=== PATIENT | male | born 1980 | race Caucasian/White ===

== ENCOUNTER 2016-07-09 10:53 | Emergency (ER) | payer OTHER ==
[~2016-07-09] VITALS: Ht 175.3 cm; Wt 69.3 kg
[~2016-07-09 10:53] MED LIST: CITA20TA4 PO; IBUP-103 PO; WLLSR150 PO
[2016-07-09 10:56] VITALS: TEMP 36.7; Ht 175.3 cm; Wt 69.3 kg
[2016-07-09] MEDS ORDERED: KETOROLAC TROMETHAMINE 30 MG/ML VIAL IV STA (11:15)
[2016-07-09] MEDS ORDERED: ONDANSETRON 4MG OD TAB PO ONE (11:15)
[2016-07-09] MEDS ORDERED: ONDANSETRON INJ 2 MG/ML 2 ML VIAL IV STA (11:15)
[2016-07-09] MEDS ORDERED: SODIUM CHLORIDE 0.9% 1000ML 2,000 ML IV STA (11:15)
[2016-07-09] MEDS ORDERED: MECLIZINE HCL 25 MG TAB PO STA (11:17)
[2016-07-09 11:36] LABS: BASO % 0.7 %; BASO ABS # 0.05 K/uL (0-0.2); COMPLETE YES; HEMATOCRIT 40.6 % (42-52); IG% 0.3 %; LYMPH % 15.6 %; LYMPH ABS # 1.04 K/uL (1.2-3.4); MEAN CELL VOLUME 84.4 fL (80-100); MEAN CORPUSCULAR HEMOGLOBIN 30.8 pg (25-34); MEAN CORPUSCULAR HGB CONC 36.5 g/dl (32-36); MEAN PLATELET VOLUME 9.3 fL (7.4-10.4); MONO % 11.7 %; NEUT % 68.7 %; PLATELET COUNT 158 K/uL (130-400); RED BLOOD COUNT 4.81 M/uL (4.7-6.1); WHITE BLOOD COUNT 6.68 K/uL (4.8-10.8)
[2016-07-09 11:47] LABS: PARTIAL THROMBOPLASTIN RATIO 1.1; PROTHROMBIN TIME (PATIENT) 11.1 SECONDS (9.0-12.0)
[2016-07-09 11:56] VITALS: O2SAT 100
[2016-07-09 12:02] LABS: ALKALINE PHOSPHATASE 96 U/L (45-117); ALT/SGPT 26 U/L (12-78); AST/SGOT 15 U/L (15-37); BLOOD UREA NITROGEN 5 mg/dl (7-18); BUN/CREATININE RATIO 5.4 (10-20); CALCIUM 8.9 mg/dl (8.5-10.1); CARBON DIOXIDE 27 mmol/L (21-32); CHLORIDE 101 mmol/L (98-107); CREATININE 0.98 mg/dl (0.60-1.40); GLUCOSE 96 mg/dl (70-99); MAGNESIUM 1.9 mg/dl (1.8-2.4); POTASSIUM 3.5 mmol/L (3.5-5.1); SODIUM 137 mmol/L (136-145)
[2016-07-09] MEDS ORDERED: OPTIRAY 320 IV PRN (12:15)
--- NOTE | 2016-07-09 12:18 | DIAGNOSTIC IMAGING REPORT ---
CT HEAD WITHOUT CONTRAST (CT) CLINICAL HISTORY: Weakness, dizziness, numbness and tingling in the face and arm. Difficulty with balance. COMPARISON STUDY: 09/23/2015 TECHNIQUE: Axial CT of the brain is performed from the vertex to the skull base. IV contrast was not administered for this examination. CT DOSE: 823.94 mGycm FINDINGS: No intra or extra-axial mass lesions are visualized. There is no CT evidence of acute cortical infarction. There is no evidence of midline shift. There is no acute hemorrhage. No calvarial fractures are visualized. There is no evidence of pathologic ventricular dilatation. There is complete opacification and mild expansion of the right maxillary sinus. Multiple teeth when air cells are opacified. There is a sphenoid sinus retention cyst. There is partial opacification of the right frontal sinus. There are postcraniotomy changes involving the right parietal bone. IMPRESSION: 1. No acute intracranial findings 2. Post craniotomy changes 3. Pansinus disease Electronically signed by: Desmond Black M.D. 07/09/2016 12:17 PM
--- NOTE | 2016-07-09 12:38 | DIAGNOSTIC IMAGING REPORT ---
CT ANGIOGRAPHY OF THE CHEST, PULMONARY EMBOLUS PROTOCOL CLINICAL HISTORY: Shortness of breath, chest pain and elevated d-dimer. COMPARISON STUDY: Chest radiograph April 24, 2015 TECHNIQUE: Following IV administration of 102 mL of Optiray-320, helical axial images of the chest were obtained utilizing the pulmonary embolus protocol. Maximal intensity projections and sagittal and coronal reformats were viewed on an independent 3D workstation. IV contrast was administered without complication. CT DOSE: 435.48 mGycm FINDINGS: No pulmonary emboli are identified. There is no evidence of thoracic aortic dissection. The size of the heart is normal. There is no pericardial effusion. There are a few mildly enlarged right hilar lymph nodes that measure up to 1.4 cm in short axis diameter. There are prominent left hilar nodes. There are no enlarged mediastinal or axillary nodes. No pneumothorax or pleural effusions present. There are subtle groundglass opacities with centrilobular nodules within upper lobe predominance. No confluent consolidation is present. Central airways are patent. Bony thorax is unremarkable. Borderline splenomegaly similar to CT of January 27, 2009. IMPRESSION: 1. No pulmonary emboli identified. 2. Subtle subtle groundglass opacity with centrilobular nodules throughout the lungs with an upper lobe predominance. This finding could reflect a mild infectious process such as bronchiolitis. Alternatively, the findings could reflect hypersensitivity pneumonitis or respiratory bronchiolitis of interstitial lung disease. 3. Mild bilateral hilar lymphadenopathy, right greater than left. This may be reactive. A follow up chest CT in 6 months is recommended. Electronically signed by: Abraham Dennis M.D. 07/09/2016 12:36 PM
--- NOTE | 2016-07-09 13:00 | DIAGNOSTIC IMAGING REPORT ---
CHEST 2 VIEWS ROUTINE CLINICAL HISTORY: WEAKNESS DIZZINESS COMPARISON STUDY: 07/30/2014 FINDINGS: The cardiac and mediastinal contours are normal. There is no evidence of focal pulmonary consolidation. There is no evidence of failure. No pleural effusions are visualized.[ IMPRESSION: No active disease in the chest. Electronically signed by: Desmond Black M.D. 07/09/2016 12:59 PM
[2016-07-09 13:32] LABS: URINE APPEARANCE CLEAR (CLEAR); URINE BILIRUBIN NEG (NEG); URINE COLOR YELLOW; URINE NITRITE NEG (NEG); URINE PH 8.5 (4.5-7.5); URINE SPECIFIC GRAVITY > 1.045 (1.000-1.030); UROBILINOGEN NEG (NEG)
[2016-07-09 13:33] LABS: MANUAL MICROSCOPIC REQUIRED? NO; REVIEW REQ? NO
[2016-07-09 14:04] VITALS: BP 126/64; PULSE 81; O2SAT 98
--- NOTE | 2016-07-09 17:22 | EMERGENCY ROOM VISIT NOTE ---
History Report prepared by Home: Jennifer Neal Under the Supervision of: Dr. Kelvin Nance D.O. First contact with patient: 10:58 Chief Complaint: DIZZY Stated Complaint: DIZZY, NUMB/TINGLE, FACE ARM, OFF BALANCE Nursing Triage Summary: Triage Note: Pt reports "she can talk for me." pt girlfriend reports pt has been dizzy and lightheaded and falling since Thursday also face hands and arms are tingling. History of Present Illness The patient is a 36 year old male who presents to the Emergency Room with complaints of persistent dizziness that started 3 days ago. Originally, he thought his symptoms were a result of being hungover but they persisted. He describes the dizziness as lightheadedness like he is going to experience syncope. He has not experienced syncope. He states that the dizziness feels like "things are wobbling" but not spinning. The dizziness is worse with changes in position. The patient's girlfriend states that the patient has been falling a lot recently also. He is also experiencing chills, headache, rhinorrhea, sinus congestion, sore throat, productive cough with green sputum, and generalized weakness. He has not measured his temperature so he is unsure of if he has a fever. The patient is also experiencing facial numbness and bilateral arm numbness. Nothing makes the numbness better, but it is worse with walking. His last bowel movement was a couple days ago. The patient is also experiencing chest pain that is worse with deep breaths. He has not been eating or drinking much. The chest pain started 3 days ago. He denies any history of blood clots along with recent trips. He is experiencing shortness of breath with the chest pain. The patient denies any recent sick contacts. Source of History: patient, spouse/significant other (girlfriend) Onset: 3 days ago Position: head Quality: other (lightheadedness like he is going to experience syncope) Timing: other (persistent) Modifying Factors (Worsening): other (changes in position) Associated Symptoms: + SOB, + chest pain (worse with deep breaths), + chills , + cough (productive with green sputum), + headache, + numbness (face, bilateral arms), + sorethroat, + weakness (generalized) Note: rhinorrhea, sinus congestion Review of Systems See HPI for pertinent positives & negatives. A total of 10 systems reviewed and were otherwise negative. Past Medical & Surgical Social History Problems: (1) Smoker Family History Diabetes mellitus FH: HTN (hypertension) FH: cancer Social History Smoking Status: Current Every Day Smoker Alcohol Use: occasionally Marital Status: in relationship Housing Status: lives with family Occupation Status: unemployed Current/Historical Medications Scheduled Buspirone Hcl (Buspirone Hcl), 20 MG PO TID Divalproex Sodium (Depakote), 1 TAB PO BID Escitalopram Oxalate (Lexapro), Unknown Dose PO DAILY Quetiapine Fumarate (Quetiapine Fumarate), 600 MG PO HS Scheduled PRN Ibuprofen Tab (Advil), 800 MG PO Q8 PRN for Pain or Fever Allergies Coded Allergies: No Known Allergies (Verified , 07/09/16) Physical Exam Vital Signs Date Time Temp Pulse Resp B/P Pulse Ox O2 Delivery O2 Flow Rate FiO2 07/09/16 14:04 81 14 126/64 98 07/09/16 12:44 84 14 111/68 97 89 127/86 97 128/80 07/09/16 12:41 85 15 111/68 95 Room Air 07/09/16 11:56 100 Room Air 07/09/16 11:39 99 Room Air 07/09/16 11:35 78 07/09/16 10:56 36.7 95 20 112/78 100 Room Air Physical Exam GENERAL: alert, sitting up in bed, disheveled appearing, well nourished, no distress, non-toxic HEAD: Tender over maxillary and frontal sinuses. EYE EXAM: normal conjunctiva, PERRL and EOM's intact OROPHARYNX: no exudate, no erythema, lips, buccal mucosa, and tongue normal and mucous membranes are moist NECK: supple, no nuchal rigidity, no adenopathy, non-tender, negative Brudzinski LUNGS: Clear to auscultation. Normal chest wall mechanics HEART: no murmurs, S1 normal and S2 normal ABDOMEN: abdomen soft, non-tender, normo-active bowel sounds, no masses, no rebound or guarding. BACK: Back is symmetrical on inspection and there is no deformity, no midline tenderness, no CVA tenderness. SKIN: no rashes and no bruising UPPER EXTREMITIES: upper extremities are grossly normal. LOWER EXTREMITIES: No pitting edema. NEURO EXAM: Normal sensorium, cranial nerves II-XII intact, normal speech, no weakness of arms, no weakness of legs. No drift. Finger to nose intact. Gross sensation intact. Rapid alternating movements of upper extremities are intact bilaterally. GCS: 15. Medical Decision & Procedures ER Provider Diagnostic Interpretation: Xray results per the radiologist and my interpretation. Other results have been interpreted by the radiologist and reviewed by me. CHEST 2 VIEWS ROUTINE CLINICAL HISTORY: WEAKNESS DIZZINESS COMPARISON STUDY: 07/30/2014 FINDINGS: The cardiac and mediastinal contours are normal. There is no evidence of focal pulmonary consolidation. There is no evidence of failure. No pleural effusions are visualized.[ IMPRESSION: No active disease in the chest. Electronically signed by: Desmond Black M.D. 07/09/2016 12:[address] HEAD WITHOUT CONTRAST (CT) CLINICAL HISTORY: Weakness, dizziness, numbness and tingling in the face and arm. Difficulty with balance. COMPARISON STUDY: 09/23/2015 TECHNIQUE: Axial CT of the brain is performed from the vertex to the skull base. IV contrast was not administered for this examination. CT DOSE: 823.94 mGycm FINDINGS: No intra or extra-axial mass lesions are visualized. There is no CT evidence of acute cortical infarction. There is no evidence of midline shift. There is no acute hemorrhage. No calvarial fractures are visualized. There is no evidence of pathologic ventricular dilatation. There is complete opacification and mild expansion of the right maxillary sinus. Multiple teeth when air cells are opacified. There is a sphenoid sinus retention cyst. There is partial opacification of the right frontal sinus. There are postcraniotomy changes involving the right parietal bone. IMPRESSION: 1. No acute intracranial findings 2. Post craniotomy changes 3. Pansinus disease Electronically signed by: Desmond Black M.D. 07/09/2016 12:[address] ANGIOGRAPHY OF THE CHEST, PULMONARY EMBOLUS PROTOCOL CLINICAL HISTORY: Shortness of breath, chest pain and elevated d-dimer. COMPARISON STUDY: Chest radiograph April 24, 2015 TECHNIQUE: Following IV administration of 102 mL of Optiray-320, helical axial images of the chest were obtained utilizing the pulmonary embolus protocol. Maximal intensity projections and sagittal and coronal reformats were viewed on an independent 3D workstation. IV contrast was administered without complication. CT DOSE: 435.48 mGycm FINDINGS: No pulmonary emboli are identified. There is no evidence of thoracic aortic dissection. The size of the heart is normal. There is no pericardial effusion. There are a few mildly enlarged right hilar lymph nodes that measure up to 1.4 cm in short axis diameter. There are prominent left hilar nodes. There are no enlarged mediastinal or axillary nodes. No pneumothorax or pleural effusions present. There are subtle groundglass opacities with centrilobular nodules within upper lobe predominance. No confluent consolidation is present. Central airways are patent. Bony thorax is unremarkable. Borderline splenomegaly similar to CT of January 27, 2009. IMPRESSION: 1. No pulmonary emboli identified. 2. Subtle subtle groundglass opacity with centrilobular nodules throughout the lungs with an upper lobe predominance. This finding could reflect a mild infectious process such as bronchiolitis. Alternatively, the findings could reflect hypersensitivity pneumonitis or respiratory bronchiolitis of interstitial lung disease. 3. Mild bilateral hilar lymphadenopathy, right greater than left. This may be reactive. A follow up chest CT in 6 months is recommended. Electronically signed by: Abraham Dennis M.D. 07/09/2016 12:36 PM Laboratory Results 07/09/16 11:25 Red Blood Count 4.81, Mean Corpuscular Volume 84.4, Mean Corpuscular Hemoglobin 30.8, Mean Corpuscular Hemoglobin Concent 36.5, Mean Platelet Volume 9.3, Neutrophils (%) (Auto) 68.7, Lymphocytes (%) (Auto) 15.6, Monocytes (%) (Auto) 11.7, Eosinophils (%) (Auto) 3.0, Basophils (%) (Auto) 0.7, Neutrophils # (Auto ) 4.59, Lymphocytes # (Auto) 1.04, Monocytes # (Auto) 0.78, Eosinophils # (Auto ) 0.20, Basophils # (Auto) 0.05 07/09/16 11:25 Test 07/09/16 11:25 07/09/16 11:30 07/09/16 11:34 07/09/16 13:00 White Blood Count 6.68 K/uL (4.8-10.8) Red Blood Count 4.81 M/uL (4.7-6.1) Hemoglobin 14.8 g/dL (14.0-18.0) Hematocrit 40.6 % (42-52) Mean Corpuscular Volume 84.4 fL (80-100) Mean Corpuscular Hemoglobin 30.8 pg (25-34) Mean Corpuscular Hemoglobin Concent 36.5 g/dl (32-36) Platelet Count 158 K/uL (130-400) Mean Platelet Volume 9.3 fL (7.4-10.4) Neutrophils (%) (Auto) 68.7 % Lymphocytes (%) (Auto) 15.6 % Monocytes (%) (Auto) 11.7 % Eosinophils (%) (Auto) 3.0 % Basophils (%) (Auto) 0.7 % Neutrophils # (Auto) 4.59 K/uL (1.4-6.5) Lymphocytes # (Auto) 1.04 K/uL (1.2-3.4) Monocytes # (Auto) 0.78 K/uL (0.11-0.59) Eosinophils # (Auto) 0.20 K/uL (0-0.5) Basophils # (Auto) 0.05 K/uL (0-0.2) RDW Standard Deviation 37.9 fL (36.4-46.3) RDW Coefficient of Variation 12.3 % (11.5-14.5) Immature Granulocyte % (Auto) 0.3 % Immature Granulocyte # (Auto) 0.02 K/uL (0.00-0.02) Prothrombin Time 11.1 SECONDS (9.0-12.0) Prothromb Time International Ratio 1.0 (0.9-1.1) Activated Partial Thromboplast Time 28.2 SECONDS (21.0-31.0) Partial Thromboplastin Ratio 1.1 D-Dimer 670 ug/L FEU (0-500) Anion Gap 9.0 mmol/L (3-11) Est Creatinine Clear Calc Drug Dose 104.1 ml/min Estimated GFR () 116.1 Estimated GFR (Non- 100.2 BUN/Creatinine Ratio 5.4 (10-20) Calcium Level 8.9 mg/dl (8.5-10.1) Magnesium Level 1.9 mg/dl (1.8-2.4) Total Bilirubin 0.6 mg/dl (0.2-1) Direct Bilirubin 0.2 mg/dl (0-0.2) Aspartate Amino Transf (AST/SGOT) 15 U/L (15-37) Alanine Aminotransferase (ALT/SGPT) 26 U/L (12-78) Alkaline Phosphatase 96 U/L (45-117) Troponin I < 0.015 ng/ml (0-0.045) Total Protein 7.5 gm/dl (6.4-8.2) Albumin 4.0 gm/dl (3.4-5.0) Lipase 127 U/L (73-393) Influenza Type A Antigen POS for Influ A (NEG) Influenza Type B Antigen Neg for Influ B (NEG) Bedside Glucose 93 mg/dl (70-99) Urine Color YELLOW Urine Appearance CLEAR (CLEAR) Urine pH 8.5 (4.5-7.5) Urine Specific [place] > 1.045 (1.000-1.030) Urine Protein NEG (NEG) Urine Glucose (UA) NEG (NEG) Urine Ketones 1+ (NEG) Urine Occult Blood NEG (NEG) Urine Nitrite NEG (NEG) Urine Bilirubin NEG (NEG) Urine Urobilinogen NEG (NEG) Urine Leukocyte Esterase NEG (NEG) Laboratory results per my review. Medications Administered Medications (Trade) Dose Ordered Sig/J Carlos Route Start Time Stop Time Status Last Admin Dose Admin Ondansetron HCl 4 mg 4 mg ONE ONCE PO 07/09/16 11:15 07/09/16 11:18 DC 07/09/16 11:50 4 MG Sodium Chloride (Nss 1000ml) 2,000 ml @ 999 mls/hr Q2H1M STAT IV 07/09/16 11:15 07/09/16 13:15 DC 07/09/16 11:49 999 MLS/HR Ondansetron HCl (Zofran Inj) 4 mg NOW STAT IV 07/09/16 11:15 07/09/16 11:18 DC 07/09/16 11:50 4 MG Ketorolac Tromethamine (Toradol Inj) 30 mg NOW STAT IV 07/09/16 11:15 07/09/16 11:18 DC 07/09/16 11:49 30 MG Meclizine HCl (Antivert Tab) 25 mg NOW STAT PO 07/09/16 11:17 07/09/16 11:18 DC 07/09/16 11:50 25 MG ECG Indication: chest pain Rate (beats per minute): 83 Rhythm: sinus rhythm Findings: other (normal axis, poor baseline in inferior leads) ED Course ED COURSE: Vital signs were reviewed and showed normal. The patients medical record was reviewed The above diagnostic studies were performed and reviewed. ED treatments and interventions as stated above. 1104: The patient was evaluated in room C5. A complete history and physical examination was performed. 1115: Ordered Toradol 30 mg IV, Zofran 4 mg IV, Sodium Chloride 2000 ml @ 999 mls/hr IV, Zofran Odt 4 mg PO 1117: Ordered Antivert Tab 25 mg PO 1229: I reassessed and updated the patient. 1400: Upon reevaluation, the patient is doing better. I discussed my findings with the patient and he understands and agrees with the treatment plan. Based on the patients age, coexisting illnesses, exam and lab findings the decision to treat as an outpatient was made. The patient remained stable while under my care. The patient appeared well at the time of discharge. Medical Decision Differential Diagnosis includes but is not limited to dehydration, stroke, anemia, hypoglycemia, hyponatremia, hypernatremia, urinary tract infection, pneumonia, bronchitis, sepsis, gastroenteritis, additional abdominal pathology, metabolic abnormalities and infections. Patient is a 36-year-old male who presents the ER with upper esterase symptoms and diffuse weakness. On exam labs show no significant leukocytosis or anemia. BMP along with LFTs, bilirubin, troponin and lipase are all negative. UA shows a small amount ketones. No infection. D-dimer was positive. He did have pleuritic chest pain. EKG was unremarkable. CT PE was negative. Influenza A eventually was positive. Patient was given a bolus normal saline felt slightly better. He is completely neurologically intact. He was discharged follow-up with his primary care doctor. He was not given any Tamiflu as these symptoms have been present for over 48 hours. He was able to ambulate out of the ER following discharge. CT head was also unremarkable. Symptoms were more orthostatic in nature. Discussed with Pt concerning signs and symptoms to watch out for. Pt was instructed to follow up with their PCP and discussed with the patient their option to return to the ED at anytime for persistent or worsening symptoms. The appropriate anticipatory guidance and out- patient management, including indications for return to the emergency department , were explained at length to the patient and understood. Impression Primary Impression: Influenza A Additional Impressions: Dizziness, Weakness Scribe Attestation The scribe's documentation has been prepared under my direction and personally reviewed by me in its entirety. I confirm that the note above accurately reflects all work, treatment, procedures, and medical decision making performed by me. Departure Information Dispostion Home / Self-Care Referrals Fabienne Sahni M.D. (MEDICAL) (PCP) Forms HOME CARE DOCUMENTATION FORM, IMPORTANT VISIT INFORMATION Patient Instructions A Signature Page, My [facility]
[2016-07-29] MEDS ORDERED: ESCI1TAB10 PO (12:10)
[2016-07-29] MEDS ORDERED: DIVA500T59 PO (12:10)
[2016-07-29] MEDS ORDERED: BUSP-8 PO (15:22)
[2016-07-29] MEDS ORDERED: SRQ300 PO (17:19)
== END 2016-07-09 14:05 | disposition home or self-care (01) ==
LOC: C.EDB 10:54 → C.EDC 14:05
DX: J09.X2 Influenza due to identified novel influenza A virus with other respiratory manifestations (principal); R59.0 Localized enlarged lymph nodes; R79.1 Abnormal coagulation profile; R91.8 Other nonspecific abnormal finding of lung field; F17.200 Nicotine dependence, unspecified, uncomplicated

== ENCOUNTER 2016-07-29 17:52 | Emergency (ER) | payer OTHER ==
[~2016-07-29] VITALS: Ht 175.3 cm; Wt 72.4 kg
[~2016-07-29 17:52] MED LIST changes: +BUSP-8 PO; -CITA20TA4 PO; +DIVA500T59 PO; +ESCI1TAB10 PO; +SRQ300 PO; -WLLSR150 PO
[2016-07-29 17:56] VITALS: TEMP 36.8; Ht 175.3 cm; Wt 72.4 kg
[2016-07-29] MEDS ORDERED: HYDROCODONE/ACETAMOPHEN 5/325MG TAB PO STA (18:23)
[2016-07-29] MEDS ORDERED: AMOXICILLIN 250 MG CAP PO ONE (18:30)
--- NOTE | 2016-07-29 18:47 | EMERGENCY ROOM VISIT NOTE ---
ED Visit Note First contact with patient: 18:19 CHIEF COMPLAINT: Left upper tooth pain HISTORY OF PRESENT ILLNESS: This 36-year-old male patient has had a progressive left upper toothache for 3 days. The pain is now steady and severe and radiates to the face. Denies facial swelling or fever. The patient has been taking ibuprofen for pain without any relief. The patient called his dentist but they did not get back to him with an appointment time. REVIEW OF SYSTEMS: 6 system review was performed and was negative unless stated otherwise in history of present illness. PMH: The patient is healthy; head surgery SOCIAL HISTORY: Patient lives with his girlfriend. The patient admits to tobacco use but denies any alcohol use. PHYSICAL EXAM: Vital Signs: Were reviewed Reviewed Nurse's notes. GEN.: 36-year -old white male appears uncomfortable secondary to tooth pain. MENTAL Status: Alert and oriented 3. MOUTH: Poor dental hygiene. Multiple teeth with decay. Upper front 2 teeth are missing. The #10 and 11 tooth with diffuse decay and tenderness to percussion. Surrounding gingiva with erythema but no palpable abscess. FACE: No erythema or edema noted. NECK: Supple, no lymphadenopathy noted. LUNGS: Clear to auscultation without wheezes rales or rhonchi. CARDIAC : Regular rate and rhythm without murmur. EMERGENCY COURSE: The patient was evaluated. The patient was given amoxicillin 500 mg by mouth and [place] 5/325 mg 2 tablets by mouth. The patient was reevaluated was feeling slightly better. The patient was discharged home with his girlfriend driving. DIAGNOSIS: Dental caries and dentalgia DISCHARGE INSTRUCTIONS & TREATMENT: Take amoxicillin as prescribed. Ibuprofen 600 mg every 6 hours with food for pain. Take [place] as needed for more severe pain. Do not verbal taking the [place]. Appointment with your dentist as soon as possible for definitive care. Problem List Social History Problems: (1) Smoker Status: Chronic Current/Historical Medications Scheduled Buspirone Hcl (Buspirone Hcl), 20 MG PO TID Divalproex Sodium (Depakote), 1 TAB PO BID Escitalopram Oxalate (Lexapro), Unknown Dose PO DAILY Quetiapine Fumarate (Quetiapine Fumarate), 600 MG PO HS Scheduled PRN Ibuprofen Tab (Advil), 800 MG PO Q8 PRN for Pain or Fever Allergies Coded Allergies: No Known Allergies (Verified , 07/09/16) Vital Signs Date Time Temp Pulse Resp B/P Pulse Ox O2 Delivery O2 Flow Rate FiO2 07/29/16 17:56 36.8 94 18 115/77 95 Room Air Medications Administered Medications (Trade) Dose Ordered Sig/J Carlos Route Start Time Stop Time Status Last Admin Dose Admin Acetaminophen/ Hydrocodone Bitart ([place] 5/325 Tab) 2 tab NOW STAT PO 07/29/16 18:23 07/29/16 18:26 DC 07/29/16 18:35 2 TAB Amoxicillin (Amoxil Cap) 500 mg NOW ONCE PO 07/29/16 18:30 07/29/16 18:31 DC 07/29/16 18:35 500 MG Departure Information Referrals Fabienne Sahni M.D. (MEDICAL) (PCP) Patient Instructions [facility]
[2016-07-29] MEDS ORDERED: AMOX500C3 PO (18:49)
[2016-07-29] MEDS ORDERED: HYDR-5688 PO (18:49)
[2016-07-29 19:01] VITALS: BP 121/81; PULSE 97; O2SAT 98
== END 2016-07-29 19:02 | disposition home or self-care (01) ==
LOC: C.EDB 17:52 → C.EDD 19:02
DX: K02.9 Dental caries, unspecified (principal); K08.89 Other specified disorders of teeth and supporting structures; F17.200 Nicotine dependence, unspecified, uncomplicated; Z79.899 Other long term (current) drug therapy

== ENCOUNTER → 2016-10-07 | Outpatient (CLI) | payer OTHER ==
[~2016-10-07] MED LIST changes: +BSP/10 PO; +CEPH500C PO; +DIVA250T PO; +DPKSR/250 PO; +HYDR-5688 PO; +LXP10 PO; +PANT40TA PO
[2016-10-07 12:48] LABS: BASO % 0.2 %; BASO ABS # 0.02 K/uL (0-0.2); COMPLETE YES; EOS % 5.2 %; IG% 0.3 %; LYMPH % 27.6 %; MEAN CELL VOLUME 85.8 fL (80-100); MEAN CORPUSCULAR HEMOGLOBIN 30.9 pg (25-34); MEAN PLATELET VOLUME 10.4 fL (7.4-10.4); NEUT % 60.7 %; PLATELET COUNT 146 K/uL (130-400); RED BLOOD COUNT 4.66 M/uL (4.7-6.1)
[2016-10-07 13:17] LABS: ALT/SGPT 18 U/L (12-78); AST/SGOT 8 U/L (15-37); BLOOD UREA NITROGEN 8 mg/dl (7-18); BUN/CREATININE RATIO 8.1 (10-20); CARBON DIOXIDE 31 mmol/L (21-32); CHLORIDE 103 mmol/L (98-107); CREATININE 0.94 mg/dl (0.60-1.40); GLUCOSE 101 mg/dl (70-99); POTASSIUM 3.7 mmol/L (3.5-5.1); SODIUM 140 mmol/L (136-145)
[2016-10-07 13:19] LABS: ALKALINE PHOSPHATASE 70 U/L (45-117)
== END | disposition home or self-care (01) ==
LOC: C.LAB 11:42
PROVIDERS: ATTEND Psychiatry & Neurology Psychiatry
DX: F31.9 Bipolar disorder, unspecified (principal)

== ENCOUNTER 2017-04-01 09:44 | Emergency (ER) | payer OTHER ==
[~2017-04-01] VITALS: Ht 175.3 cm; Wt 70.5 kg
[~2017-04-01 09:44] MED LIST changes: -BSP/10 PO; -CEPH500C PO; -DIVA250T PO; -DPKSR/250 PO; -HYDR-5688 PO; -LXP10 PO; -PANT40TA PO
[2017-04-01 09:48] VITALS: TEMP 36.7; Ht 175.3 cm; Wt 70.5 kg
--- NOTE | 2017-04-01 10:06 | DIAGNOSTIC IMAGING REPORT ---
LEFT INDEX FINGER 3 VIEWS HISTORY: R/O fracture left index finger, stove fell on finger COMPARISON: None. FINDINGS: There is no fracture or dislocation. Mild soft tissue swelling. No radiopaque foreign bodies. IMPRESSION: No fractures. Electronically signed by: Sony Leigh M.D. 04/01/2017 10:05 AM Dictated Date/Time: 04/01/2017 10:03 AM
[2017-04-01] MEDS ORDERED: XYLOCAINE 1%/SOD BICARB 20 ML VIAL INFIL ONE (10:20)
[2017-04-01] MEDS ORDERED: DIVA250T PO (10:27)
[2017-04-01] MEDS ORDERED: LXP10 PO (10:27)
[2017-04-01] MEDS ORDERED: BSP/10 PO (10:27)
[2017-04-01] MEDS ORDERED: DPKSR/250 PO (10:27)
[2017-04-01] MEDS ORDERED: CEPH500C PO (10:41)
--- NOTE | 2017-04-01 10:45 | EMERGENCY ROOM VISIT NOTE ---
ED Visit Note First contact with patient: 10:10 CHIEF COMPLAINT: Finger laceration HISTORY OF PRESENT ILLNESS: This 37-year-old male patient presents to the emergency department ambulatory after cutting the left second finger when he was throwing a kitchen stove into a truck to take for scrap metal and something sharp cut him. It did not crush his finger. The bleeding has not stopped. Denies weakness or numbness of the finger. The patient states that he cannot extend the finger. The patient denies any pain. The patient denies any other injuries. The patient's tetanus shot is up to date. REVIEW OF SYSTEMS: A 6 system review of systems was completed with positives and pertinent negatives listed in the HPI. ALLERGIES: No known drug allergies MEDICATIONS: See nursing notes PMH: Mood disorder SOCIAL HISTORY: The patient lives locally PHYSICAL EXAM: Vital Signs: Reviewed Nurse's notes, vital signs stable. GENERAL : This 37-year-old male, in no acute distress, well developed, well nourished. SKIN: There is a 3 cm long laceration on the dorsal aspect of the left second finger. The edges gape apart with traction. There is no foreign material in the wound and it looks clean. There is moderate bleeding. No deep structures such as tendons, bones, or nerves are seen in the base of the wound. The patient is unable to extend the finger. Full range of motion of the wrist and other fingers. Capillary refill less than 2 seconds. Normal sensation to light and sharp touch. EMERGENCY DEPARTMENT COURSE: I examined the patient. Using sterile technique the wound was cleaned with Betadine. 4 ml of 1% buffered lidocaine was used to infiltrate the wound to anesthetize the patient. The area was sterilely draped. Once the patient was numb, the wound was copiously irrigated under pressure with sterile saline. There does appear to be a laceration to the extensor tendon. The laceration was repaired using simple interrupted 5-0 nylon sutures. The patient tolerated the procedure well. The bleeding stopped. The area was cleaned with sterile saline and dressed with bacitracin ointment and bandage. The patient was placed in a metal splint by the emergency department special systems technician He'll be placed on Keflex to help prevent infection An appointment was made for him with orthopedics tomorrow. He should keep this appointment. He should return with worsening symptoms. LEFT INDEX FINGER 3 VIEWS HISTORY: R/O fracture left index finger, stove fell on finger COMPARISON: None. FINDINGS: There is no fracture or dislocation. Mild soft tissue swelling. No radiopaque foreign bodies. IMPRESSION: No fractures. The patient was discharged home in good condition. Problem List Social History Problems: (1) Smoker Status: Chronic Current/Historical Medications Scheduled Buspirone HCl (Buspirone HCl), 2 TAB PO TID Cephalexin Monohydrate (Keflex), 500 MG PO TID Divalproex Sodium (Depakote Extended-Release), 1 TAB PO QAM Divalproex Sodium (Depakote Er), 2 TAB PO HS Escitalopram Oxalate (Escitalopram Oxalate), 1 TAB PO QAM Quetiapine Fumarate (Quetiapine Fumarate), 600 MG PO HS Scheduled PRN Ibuprofen Tab (Advil), 800 MG PO Q8 PRN for Pain or Fever Allergies Coded Allergies: No Known Allergies (Verified , 04/01/17) Vital Signs Date Time Temp Pulse Resp B/P (MAP) Pulse Ox O2 Delivery O2 Flow Rate FiO2 04/01/17 11:10 95 18 139/82 98 04/01/17 09:48 36.7 95 18 124/81 98 Room Air Departure Information Impression Primary Impression: Finger laceration involving tendon Dispostion Home / Self-Care Condition GOOD Prescriptions Cephalexin Monohydrate (Keflex) 500 Mg Cap 500 MG PO TID for 7 Days, #21 CAP Prov: Adelaida Ivan PA-C 04/01/17 Referrals Fabienne Sahni M.D. (MEDICAL) (PCP) Hernandez Castro D.O. Patient Instructions ED Laceration Tendon, My [facility] Additional Instructions Keflex as prescribed until finished Keep wound clean and dry. Do not allow any crusting or dried blood to accumulate on sutures. If this occurs, use a 1:1 solution of hydrogen peroxide/ water on a Q-tip to clean the wound. Use an antibiotic ointment for 3-4 days, then let wound dry. Suture removal in 10-12 days. Return sooner for any signs of infection (increasing redness, swelling, drainage). Ice and elevate for swelling and pain. Ibuprofen 600 mg every 6 hrs for pain. Keep covered when in sun until sutures removed then SPF 50 or higher for one year. Vitamin E oil if desired two weeks after suture removal for reduction of scar. Wear the splint until seen by orthopedics You have an appointment with Efrain Cantor PA-C tomorrow at 12:10 at [facility] Return with worsening symptoms Problem Qualifiers Primary Impression: Finger laceration involving tendon Encounter type: initial encounter Qualified Codes: S61.219A - Laceration without foreign body of unspecified finger without damage to nail, initial encounter; S66.929A - Laceration of unspecified muscle, fascia and tendon at wrist and hand level, unspecified hand, initial encounter
[2017-04-01 11:10] VITALS: BP 139/82; PULSE 95; O2SAT 98
== END 2017-04-01 11:10 | disposition home or self-care (01) ==
LOC: C.EDB 09:46 → C.EDD 11:10
DX: S61.211A Laceration without foreign body of left index finger without damage to nail, initial encounter (principal); S66.321A Laceration of extensor muscle, fascia and tendon of left index finger at wrist and hand level, initial encounter; W45.8XXA Other foreign body or object entering through skin, initial encounter; F17.200 Nicotine dependence, unspecified, uncomplicated; Z79.899 Other long term (current) drug therapy

== ENCOUNTER 2017-06-09 20:41 | Emergency (ER) | payer OTHER ==
[~2017-06-09] VITALS: Ht 175.3 cm; Wt 77.5 kg
[~2017-06-09 20:41] MED LIST changes: +BSP/10 PO; -BUSP-8 PO; +DIVA250T PO; -DIVA500T59 PO; +DPKSR/250 PO; -ESCI1TAB10 PO; +LXP10 PO
[2017-06-09 20:58] VITALS: TEMP 36.5; Ht 175.3 cm; Wt 77.5 kg
[2017-06-09] MEDS ORDERED: ONDANSETRON INJ 2 MG/ML 2 ML VIAL IV STA (21:28)
[2017-06-09] MEDS ORDERED: MoRPHine SULFATE 4 MG/ML 1 ML CARP\\VIAL IV STA (21:28)
[2017-06-09] MEDS ORDERED: PANTOprazole INJ 40 MG in SYRINGE 0 ML IV ONE (21:30)
[2017-06-09] MEDS ORDERED: PANT40TA PO (21:33)
[2017-06-09 22:01] LABS: BASO % 0.4 %; BASO ABS # 0.03 K/uL (0-0.2); COMPLETE YES; EOS % 3.5 %; HEMATOCRIT 37.4 % (42-52); IG% 0.7 %; LYMPH ABS # 3.31 K/uL (1.2-3.4); MEAN CELL VOLUME 88.2 fL (80-100); MEAN CORPUSCULAR HEMOGLOBIN 31.1 pg (25-34); MEAN CORPUSCULAR HGB CONC 35.3 g/dl (32-36); MEAN PLATELET VOLUME 9.6 fL (7.4-10.4); NEUT % 44.4 %; PLATELET COUNT 137 K/uL (130-400); RED BLOOD COUNT 4.24 M/uL (4.7-6.1); WHITE BLOOD COUNT 7.53 K/uL (4.8-10.8)
[2017-06-09 22:21] LABS: ALT/SGPT 16 U/L (12-78); BLOOD UREA NITROGEN 7 mg/dl (7-18); BUN/CREATININE RATIO 7.6 (10-20); CARBON DIOXIDE 29 mmol/L (21-32); CHLORIDE 101 mmol/L (98-107); CREATININE 0.92 mg/dl (0.60-1.40); GLUCOSE 108 mg/dl (70-99); POTASSIUM 3.3 mmol/L (3.5-5.1); SODIUM 137 mmol/L (136-145)
[2017-06-09 22:24] LABS: ALKALINE PHOSPHATASE 81 U/L (45-117); AST/SGOT 10 U/L (15-37)
--- NOTE | 2017-06-09 22:35 | EMERGENCY ROOM VISIT NOTE ---
History Report prepared by Fidelibpat: Jonathan Melton Under the Supervision of: Dr. Lauro Mancilla D.O. First contact with patient: 21:24 Chief Complaint: ABDOMINAL PAIN Stated Complaint: PAIN LEFT SIDE UNDER RIBS Nursing Triage Summary: pt c/o intermittent upper abdominal pain. pt states 3 weeks ago he went to PCP and put on antacid for stomach, unknown med. pt states for last 4-5 hours pt has had severe mid upper abdominal pain that won't go away. states he hasn't eaten all day. pain worse when he takes a deep breath. pain radiates upwards into L ear, sometimes into R ear. denies N/V/D/C and belching History of Present Illness The patient is a 37 year old male who presents to the Emergency Room with complaints of intermittent epigastric abdominal pain beginning a month ago. His pain radiates up and into his ears. His pain has been constant for the past four hours. The patient has been seen for his symptoms, and has been evaluated for GERD. He rates his current pain as an 8.5/10 in severity. He denies any fevers, bloody stool, or urinary symptoms. The patient is a former smoker. Source of History: patient Onset: A month ago Position: abdomen (epigastric) Symptom Intensity: 8.5/10 Timing: intermittent Associated Symptoms: No fevers, No hematochezia, No urinary symptoms Review of Systems See HPI for pertinent positives and negatives. A total of ten systems were reviewed and were otherwise negative. Past Medical & Surgical Medical Problems: (1) Back strain (2) Closed head injury (3) Dizziness (4) Finger laceration involving tendon (5) Gastritis (6) Headache (7) Influenza (8) Influenza A (9) Laceration of hand, right, complicated (10) No Known Active Medical Problems (11) Pain due to dental caries (12) Pain due to dental caries (13) Pneumonia (14) Rib contusion (15) Right corneal abrasion (16) Scalp laceration (17) Sinusitis (18) Weak (19) Weakness Social History Problems: (1) Smoker Family History Diabetes mellitus FH: HTN (hypertension) FH: cancer Social History Smoking Status: Current Every Day Smoker Alcohol Use: occasionally Marital Status: in relationship Housing Status: lives with family Occupation Status: unemployed Current/Historical Medications Scheduled Buspirone HCl (Buspirone HCl), 20 MG PO BID Divalproex Sodium (Depakote Extended-Release), 250 MG PO QAM Divalproex Sodium (Depakote Er), 500 MG PO HS Escitalopram Oxalate (Escitalopram Oxalate), 10 MG PO QAM Pantoprazole (Protonix), 40 MG PO DAILY Quetiapine Fumarate (Quetiapine Fumarate), 600 MG PO HS Scheduled PRN Ibuprofen Tab (Advil), 800 MG PO Q8 PRN for Pain or Fever Allergies Coded Allergies: No Known Allergies (Verified , 04/01/17) Physical Exam Vital Signs Date Time Temp Pulse Resp B/P (MAP) Pulse Ox O2 Delivery O2 Flow Rate FiO2 06/09/17 22:33 74 18 116/76 98 Room Air 06/09/17 20:58 36.5 76 18 116/49 98 Room Air Physical Exam GENERAL: Awake, alert, well-appearing, in no distress HENT: Normocephalic, atraumatic. Oropharynx unremarkable. EYES: Normal conjunctiva. Sclera non-icteric. NECK: Supple. No nuchal rigidity. FROM. No JVD. RESPIRATORY: Clear to auscultation. CARDIAC: Regular rate, normal rhythm. Extremities warm and well perfused. Pulses equal. ABDOMEN: Soft, non-distended. Epigastric tenderness to palpation. No rebound or guarding. No masses. RECTAL: Deferred. MUSCULOSKELETAL: Chest examination reveals no tenderness. The back is symmetrical on inspection without obvious abnormality. There is no CVA tenderness to palpation. No joint edema. LOWER EXTREMITIES: Calves are equal size bilaterally and non-tender. No edema. No discoloration. NEURO: Normal sensorium. No sensory or motor deficits noted. SKIN: No rash or jaundice noted. Medical Decision & Procedures Laboratory Results 06/09/17 21:40 Red Blood Count 4.24, Mean Corpuscular Volume 88.2, Mean Corpuscular Hemoglobin 31.1, Mean Corpuscular Hemoglobin Concent 35.3, Mean Platelet Volume 9.6, Neutrophils (%) (Auto) 44.4, Lymphocytes (%) (Auto) 44.0, Monocytes (%) (Auto) 7.0, Eosinophils (%) (Auto) 3.5, Basophils (%) (Auto) 0.4, Neutrophils # (Auto) 3.35, Lymphocytes # (Auto) 3.31, Monocytes # (Auto) 0.53, Eosinophils # (Auto) 0.26, Basophils # (Auto) 0.03 06/09/17 21:40 Test 06/09/17 21:28 06/09/17 21:40 White Blood Count 7.53 K/uL (4.8-10.8) Red Blood Count 4.24 M/uL (4.7-6.1) Hemoglobin 13.2 g/dL (14.0-18.0) Hematocrit 37.4 % (42-52) Mean Corpuscular Volume 88.2 fL (80-100) Mean Corpuscular Hemoglobin 31.1 pg (25-34) Mean Corpuscular Hemoglobin Concent 35.3 g/dl (32-36) Platelet Count 137 K/uL (130-400) Mean Platelet Volume 9.6 fL (7.4-10.4) Neutrophils (%) (Auto) 44.4 % Lymphocytes (%) (Auto) 44.0 % Monocytes (%) (Auto) 7.0 % Eosinophils (%) (Auto) 3.5 % Basophils (%) (Auto) 0.4 % Neutrophils # (Auto) 3.35 K/uL (1.4-6.5) Lymphocytes # (Auto) 3.31 K/uL (1.2-3.4) Monocytes # (Auto) 0.53 K/uL (0.11-0.59) Eosinophils # (Auto) 0.26 K/uL (0-0.5) Basophils # (Auto) 0.03 K/uL (0-0.2) RDW Standard Deviation 40.6 fL (36.4-46.3) RDW Coefficient of Variation 12.7 % (11.5-14.5) Immature Granulocyte % (Auto) 0.7 % Immature Granulocyte # (Auto) 0.05 K/uL (0.00-0.02) Anion Gap 7.0 mmol/L (3-11) Est Creatinine Clear Calc Drug Dose 112.1 ml/min Estimated GFR () 124.5 Estimated GFR (Non- 107.4 BUN/Creatinine Ratio 7.6 (10-20) Calcium Level 9.0 mg/dl (8.5-10.1) Total Bilirubin 0.4 mg/dl (0.2-1) Direct Bilirubin < 0.1 mg/dl (0-0.2) Aspartate Amino Transf (AST/SGOT) 10 U/L (15-37) Alanine Aminotransferase (ALT/SGPT) 16 U/L (12-78) Alkaline Phosphatase 81 U/L (45-117) Total Protein 7.5 gm/dl (6.4-8.2) Albumin 3.5 gm/dl (3.4-5.0) Lipase 158 U/L (73-393) Laboratory results reviewed by me Medications Administered Medications (Trade) Dose Ordered Sig/J Carlos Route Start Time Stop Time Status Last Admin Dose Admin Ondansetron HCl (Zofran Inj) 4 mg NOW STAT IV 06/09/17 21:28 06/09/17 21:30 DC 06/09/17 21:47 4 MG Morphine Sulfate (MoRPHine SULFATE INJ) 4 mg NOW STAT IV 06/09/17 21:28 06/09/17 21:30 DC 06/09/17 21:47 4 MG Pantoprazole Sodium 40 mg/ Syringe 10 ml @ 5 mls/min NOW ONCE IV 06/09/17 21:30 06/09/17 21:31 DC 06/09/17 21:55 5 MLS/MIN ECG Indication: abdominal pain Rate (beats per minute): 74 Rhythm: sinus rhythm Findings: no acute ischemic change, other (Normal intervals. Normal axis. ) ED Course 2123: The patient was evaluated in room C10. A complete history and physical exam was performed. 2127: Ordered Morphine Sulfate 4 mg IV, Zofran Inj 4 mg IV. 2129: Ordered Pantoprazole Sodium 40 mg/Syringe 10 mL @ 5 mL/min IV. 2131: I reevaluated the patient. Discussed results and discharge instructions: he verbalized understanding and agreement. The patient is ready for discharge. Medical Decision Differential diagnoses include but are not limited to; gastritis, gastroenteritis, cholecystitis, pancreatitis, appendicitis and GERD. Patient evaluated for midepigastric abdominal pain. Patient was given Protonix morphine Zofran. Patient's labs were normal. I do not suspect pancreatitis or cholecystitis. I instructed the patient to take Pepcid daily follow-up primary care physician and a GI physician. Spoken patient and the patient's significant other at bedside Medication Reconcilliation Current Medication List: was personally reviewed by me Blood Pressure Screening Patient's blood pressure: Normal blood pressure Blood pressure disposition: Did not require urgent referral Impression Primary Impression: Gastritis Additional Impression: Epigastric abdominal pain Scribe Attestation The scribe's documentation has been prepared under my direction and personally reviewed by me in its entirety. I confirm that the note above accurately reflects all work, treatment, procedures, and medical decision making performed by me. Departure Information Dispostion Home / Self-Care Referrals Fabienne Sahni M.D. (MEDICAL) (PCP) Patient Instructions ED PUD Vs Gastritis, My [facility] Additional Instructions Follow-up primary care physician, take Pepcid daily, consider following up with a GI physician Problem Qualifiers Primary Impression: Gastritis
[2017-06-09 22:41] LABS: MANUAL MICROSCOPIC REQUIRED? NO; REVIEW REQ? NO; URINE APPEARANCE CLEAR (CLEAR); URINE BILIRUBIN NEG (NEG); URINE COLOR YELLOW; URINE NITRITE NEG (NEG); URINE SPECIFIC GRAVITY 1.007 (1.000-1.030); UROBILINOGEN NEG (NEG); ZZUR CULT IF INDIC CLEAN CATCH NO
[2017-06-09 22:47] VITALS: BP 116/76; PULSE 74; O2SAT 98
== END 2017-06-09 22:49 | disposition home or self-care (01) ==
LOC: C.EDB 20:41 → C.EDC 22:49
DX: K29.70 Gastritis, unspecified, without bleeding (principal); Z87.891 Personal history of nicotine dependence; Z83.3 Family history of diabetes mellitus; Z82.49 Family history of ischemic heart disease and other diseases of the circulatory system; Z80.9 Family history of malignant neoplasm, unspecified

== ENCOUNTER 2017-06-24 18:40 | Emergency (ER) | payer OTHER ==
[~2017-06-24] VITALS: Ht 175.3 cm; Wt 76.1 kg
[2017-06-24 18:43] VITALS: BP 133/79; PULSE 105; TEMP 36.7; O2SAT 96; Ht 175.3 cm; Wt 76.1 kg
[2017-06-24 19:32] LABS: HEMATOCRIT 38.2 % (42-52); MEAN CELL VOLUME 87.4 fL (80-100); MEAN CORPUSCULAR HEMOGLOBIN 31.8 pg (25-34); MEAN CORPUSCULAR HGB CONC 36.4 g/dl (32-36); MEAN PLATELET VOLUME 9.7 fL (7.4-10.4); PLATELET COUNT 173 K/uL (130-400); RED BLOOD COUNT 4.37 M/uL (4.7-6.1); WHITE BLOOD COUNT 6.97 K/uL (4.8-10.8)
--- NOTE | 2017-06-24 19:33 | EMERGENCY ROOM VISIT NOTE ---
ED Visit Note First contact with patient: 18:48 CHIEF COMPLAINT: knee pain HISTORY OF PRESENT ILLNESS: This 37 year old male patient presents to the emergency department, ambulatory, complaining of 3 week long history of left knee pain. He denies injury. Pain is only present on palpation and when sitting on his knees. 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 He states the symptoms have been progressively worsening, despite using knee pads while painting and on his knees. The patient states the only thing which seems to help is putting a pillow under his shins while kneeling down to take the pressure off of his knees. He denies any fatigue, open wound, recent illness, other joint pain or myalgias, confusion, dizziness, nausea, or vomiting. He has not had a fever. The patient denies any other injuries besides their knee. The patient does report swelling and redness, over the anterior aspect of the knee, but denies bruising. There is pain anteriorly. They rate the pain as sharp and 1/10 currently. The patient states they are able to walk on it. No numbness or tingling. No previous injuries to this knee. No ankle, foot or hip pain. The patient has been taking 800mg ibuprofen every 3 hours for the pain without significant relief. REVIEW OF SYSTEMS: A 6 system review of systems was completed with positives and pertinent negatives listed in the HPI. ALLERGIES: None MEDICATIONS: BuSpar, Depakote, Lexapro, Protonix, Quetiapine PMH: Bipolar, Paranoia, GERD SOCIAL HISTORY: The patient lives locally with family. He denies drug, alcohol use. He admits to smoking 1 to 1 1/2 packs cigarettes per day. PHYSICAL EXAM: Vital Signs: Reviewed Nurse's notes, vital signs stable. GENERAL : This is a 37 year old white male, no acute distress, but appears in pain, well-developed, well-nourished. MENTAL STATUS: Alert, oriented to person place and time, and cooperative. MUSCULOSKELETAL: The left knee is anteriorly swollen. The right knee is also mildly swollen, but to a much less degree. There is no ecchymosis. There is no joint effusion present. The patient is tender on palpation of the patella. There is no joint line tenderness. The patella does appropriately subluxate. Range of motion is full. Strength of the quads and hamstrings is 5/5. Chantal's is negative. Celeste's and Anterior Drawer tests are negative. There is no laxity or discomfort with varus and valgus stressing. The foot and toes are warm and well-perfused. Dorsalis pedis pulse 2+. Sensation to pain and light touch is intact. Capillary refill less than 2 seconds. RADIOLOGY: R KNEE 3 VIEWS CLINICAL HISTORY: 37 years-old Male presenting with right knee pain/swelling. TECHNIQUE: Frontal, crosstable lateral , and sunrise views of the right knee were obtained. COMPARISON: None. FINDINGS: An osseous excrescence arising from the medial tibial metaphysis is directed away from the joint and appears to have continuity with the medullary cavity most suggestive of an osteochondroma. No degenerative change at the knee joint. No acute fracture or subluxation. Patella is not subluxed. Trace knee joint effusion may be present. Mild subcutaneous edema may also be present in the prepatellar region. IMPRESSION: 1. No acute osseous injury. 2. Suspected tibial osteochondroma. 3. Trace knee joint effusion. Electronically signed by: Jesse Jones M.D. 06/24/2017 7:58 PM Dictated Date/Time: 06/24/2017 7:57 PM EMERGENCY DEPARTMENT COURSE: I examined the patient. X-rays of the right knee were reviewed by myself and read by radiology and reveal a suspected tibial osteochondroma and trace knee joint effusion. I did encourage the patient to follow up outpatient regarding the osteochondroma on his x-ray. Labs were ordered to evaluate for lyme, infection, and gout. These were negative. The patient's symptoms and history of his job as a painter apprentice are consistent with a bursitis. The patient will be started on scheduled Naprosyn for the next 2 weeks and he was encouraged to use compression perform elastic compression brace over the knee. I advised him against repetitive microtrauma with sitting on his knees and standing over and over again. The patient is to follow-up with his PCP in 2 weeks for recheck. I encouraged him to follow up with orthopedics if symptoms do not improve. I did educate the patient on proper dosages of ibuprofen, and advised against taking high dosages like 800mg every three hours due to the risk of GI bleeding and ulcers. The patient verbalizes understanding. The patient was discharged home in good condition. I attest that I have personally reviewed the patient's current medication list. Patient was found to have normal blood pressure on screening and does not require follow-up. DIFFERENTIAL DIAGNOSIS: Bursitis, Lyme disease, septic joint, gout, cellulitis, effusion, fracture, dislocation, malignancy, and others DIAGNOSIS: Prepatellar bursitis Problem List Medical Problems: (1) Back strain Status: Resolved (2) Closed head injury Status: Resolved (3) Dizziness Status: Resolved (4) Finger laceration involving tendon Status: Resolved (5) Gastritis Status: Resolved (6) Headache Status: Resolved (7) Influenza Status: Resolved (8) Influenza A Status: Resolved (9) Laceration of hand, right, complicated Status: Resolved (10) Pain due to dental caries Status: Resolved (11) Pain due to dental caries Status: Resolved (12) Pneumonia Status: Resolved (13) Rib contusion Status: Resolved (14) Right corneal abrasion Status: Resolved (15) Scalp laceration Status: Resolved (16) Sinusitis Status: Resolved (17) Weak Status: Resolved (18) Weakness Status: Resolved Social History Problems: (1) Smoker Status: Chronic Current/Historical Medications Scheduled Buspirone HCl (Buspirone HCl), 20 MG PO BID Divalproex Sodium (Depakote Extended-Release), 250 MG PO QAM Divalproex Sodium (Depakote Er), 500 MG PO HS Escitalopram Oxalate (Escitalopram Oxalate), 10 MG PO QAM Naproxen (Naprosyn), 500 MG PO BID Pantoprazole (Protonix), 40 MG PO DAILY Quetiapine Fumarate (Quetiapine Fumarate), 600 MG PO HS Scheduled PRN Ibuprofen Tab (Advil), 800 MG PO Q8 PRN for Pain or Fever Allergies Coded Allergies: No Known Allergies (Verified , 04/01/17) Vital Signs Date Time Temp Pulse Resp B/P (MAP) Pulse Ox O2 Delivery O2 Flow Rate FiO2 06/24/17 18:43 36.7 105 16 133/79 96 Room Air Laboratory Results 06/24/17 19:20 06/24/17 19:20 Test 06/24/17 19:20 Red Blood Count 4.37 M/uL (4.7-6.1) Mean Corpuscular Volume 87.4 fL (80-100) Mean Corpuscular Hemoglobin 31.8 pg (25-34) Mean Corpuscular Hemoglobin Concent 36.4 g/dl (32-36) RDW Standard Deviation 40.3 fL (36.4-46.3) RDW Coefficient of Variation 12.5 % (11.5-14.5) Mean Platelet Volume 9.7 fL (7.4-10.4) Anion Gap 4.0 mmol/L (3-11) Est Creatinine Clear Calc Drug Dose 93.8 ml/min Estimated GFR () 100.3 Estimated GFR (Non- 86.5 BUN/Creatinine Ratio 7.5 (10-20) Uric Acid 6.6 mg/dl (2.6-7.2) Calcium Level 8.7 mg/dl (8.5-10.1) Lyme Disease IgG Antibody NEG (NEG) Lyme Disease IgM Antibody NEG (NEG) Medications Administered Medications (Trade) Dose Ordered Sig/J Acrlos Route Start Time Stop Time Status Last Admin Dose Admin Naproxen (Naprosyn Tab) 500 mg NOW STAT PO 06/24/17 20:21 06/24/17 20:23 DC 06/24/17 20:29 500 MG Departure Information Impression Primary Impression: Prepatellar bursitis of right knee Additional Impression: Osteochondroma of bone Dispostion Home / Self-Care Condition GOOD Prescriptions Naproxen (Naprosyn) 500 Mg Tab 500 MG PO BID for 14 Days, #28 TAB Prov: Ruthie Carney, ANA 06/24/17 Referrals Fabienne Sahni M.D. (MEDICAL) (PCP) Patient Instructions ED Bursitis, My [facility] Additional Instructions You were seen in the emergency department today for right knee pain. Labs and imaging were insignificant for acute causes for your symptoms. Labs were negative for Lyme disease and gout. I do suspect a prepatellar bursitis. As discussed, this is treated with rest, compression, and antiinflammatories. Follow-up with your PCP regarding osteochondroma noted on X-ray. Take Naproxen 500mg twice daily x2 weeks. This is to be used in place of ibuprofen, Motrin, Advil, Aleve. Acetaminophen(Tylenol) may be used for fever or pain. Use 1000mg every six hours as needed. Avoid using more than 3000mg in a 24 hour period. He may take this medication while on Naproxen. As discussed, parts picker an elastic knee brace to provide compression over the knee. You should avoid repetitive kneeling or microtrauma to the knee. If you must perform these movements, use padding under the knees. Please follow-up in 2 weeks with your PCP for re-check. You have been provided with contact information for orthopedics. You may consult with them if necessary. Return to the ED for worsening pain, swelling, redness, fever, chills, nausea, vomiting, decreased mobility, or other concerning symptoms. Problem Qualifiers
[2017-06-24 19:48] LABS: BUN/CREATININE RATIO 7.5 (10-20); CALCIUM 8.7 mg/dl (8.5-10.1); CREATININE 1.1 mg/dl (0.60-1.40); POTASSIUM 3.7 mmol/L (3.5-5.1); URIC ACID 6.6 mg/dl (2.6-7.2)
--- NOTE | 2017-06-24 19:59 | DIAGNOSTIC IMAGING REPORT ---
R KNEE 3 VIEWS CLINICAL HISTORY: 37 years-old Male presenting with right knee pain/swelling. TECHNIQUE: Frontal, crosstable lateral , and sunrise views of the right knee were obtained. COMPARISON: None. FINDINGS: An osseous excrescence arising from the medial tibial metaphysis is directed away from the joint and appears to have continuity with the medullary cavity most suggestive of an osteochondroma. No degenerative change at the knee joint. No acute fracture or subluxation. Patella is not subluxed. Trace knee joint effusion may be present. Mild subcutaneous edema may also be present in the prepatellar region. IMPRESSION: 1. No acute osseous injury. 2. Suspected tibial osteochondroma. 3. Trace knee joint effusion. Electronically signed by: Jesse Jones M.D. 06/24/2017 7:58 PM Dictated Date/Time: 06/24/2017 7:57 PM
[2017-06-24] MEDS ORDERED: NAPROXEN 250 MG TAB PO STA (20:21)
[2017-06-24] MEDS ORDERED: NAPR-1169 PO (20:24)
[2017-06-24 20:31] LABS: LYME DISEASE AB IGG NEG (NEG); LYME DISEASE AB IGM NEG (NEG)
[2017-06-24] MEDS ORDERED: PANT40TA PO (21:33)
== END 2017-06-24 20:47 | disposition home or self-care (01) ==
LOC: C.EDB 18:41 → C.EDD 20:47
DX: M70.41 Prepatellar bursitis, right knee (principal); D16.21 Benign neoplasm of long bones of right lower limb; K21.9 Gastro-esophageal reflux disease without esophagitis; F31.9 Bipolar disorder, unspecified; F22 Delusional disorders; Z79.899 Other long term (current) drug therapy; F17.210 Nicotine dependence, cigarettes, uncomplicated

== ENCOUNTER 2017-08-20 16:12 | Emergency (ER) | payer OTHER ==
[~2017-08-20] VITALS: Ht 175.3 cm; Wt 72.9 kg
[~2017-08-20 16:12] MED LIST changes: +PANT40TA PO
[2017-08-20 16:30] VITALS: Ht 175.3 cm; Wt 72.9 kg
[2017-08-20] MEDS ORDERED: CYCLOBENZAPRINE HCL 10 MG TAB PO STA (16:43)
[2017-08-20] MEDS ORDERED: OXYCODONE HCL IR 5 MG TAB (IMMEDIATE RELEASE) PO STA (16:43)
[2017-08-20] MEDS ORDERED: KETOROLAC TROMETHAMINE 60 MG/2 ML VIAL IM STA (16:43)
[2017-08-20] MEDS ORDERED: DEXAMETHASONE SOD INJ 4 MG/ML 5 ML VIAL IM STA (16:43)
[2017-08-20] MEDS ORDERED: DEXAMETHASONE **PF** INJ 10 MG/ML VIAL ONE (16:53)
--- NOTE | 2017-08-20 17:13 | DIAGNOSTIC IMAGING REPORT ---
LUMBAR SPINE 5 VIEWS HISTORY: Low back pain/injury COMPARISON: Lumbar spine 05/15/2014. FINDINGS: Minimal anterior wedging within the L2 vertebral body, unchanged. No acute fracture or subluxation within the lumbar spine. No subluxation. Disc spaces are preserved. IMPRESSION: No acute fracture or subluxation within the lumbar spine. Electronically signed by: Sony Leigh M.D. 08/20/2017 5:11 PM Dictated Date/Time: 08/20/2017 5:09 PM
--- NOTE | 2017-08-20 17:48 | EMERGENCY ROOM VISIT NOTE ---
ED Visit Note First contact with patient: 16:35 CHIEF COMPLAINT: Low back pain HISTORY OF PRESENT ILLNESS: This 37-year-old male presents to the ER with chief complaint of low back pain. The patient states that a few days ago he was helping a samantha move and when they lifted up a sofa, his friend dropped no one and and he felt a sharp pain in his lower back. Since that time he has difficulty straightening his back. He also has pain mainly into his right buttock but does not go down his legs. The patient denies any numbness and tingling down his legs. The patient denies any loss of bowel or bladder control or any saddle anesthesia. Patient denies any urinary symptoms. The patient has been taking Motrin and Tylenol without any relief of his pain. REVIEW OF SYSTEMS: 6 system review was performed and was negative unless stated otherwise in history of present illness. PMH: The patient is healthy;no significant past medical history SOCIAL HISTORY: Patient lives with his girlfriend. The patient missed to tobacco use but denies any alcohol use.. PHYSICAL EXAM: Vital Signs normal: Reviewed Nurse's notes and agree. MENTAL STATUS: 37-year-old white male appears hunched over and appears in significant pain. MENTAL Status: Alert and oriented 3. LUMBAR SPINE: No gross bony abnormality noted. Patient is tender to palpation over the spinous processes. He is tender to palpation over the paravertebral regions bilaterally. The patient has limited range of motion in all directions secondary to pain. The patient is unable to fully stand upright due to pain. Muscle strength is 5 out of 5 bilateral lower extremities and symmetrical. NEURO: Bilateral patellar and Achilles reflexes are 2+. Sensation is intact to pinprick bilateral lower extremities. Negative straight leg raise bilaterally. EMERGENCY DEPARTMENT COURSE: The patient was evaluated. The patient was given Flexeril 10 mg p.o., OxyIR 10 mg p.o., Decadron 10 mg IM and Toradol 60 mg IM. X-ray of the lumbar spine was ordered interpreted by the radiologist and myself. DIAGNOSTICS:LUMBAR SPINE 5 VIEWS HISTORY: Low back pain/injury COMPARISON: Lumbar spine 05/15/2014. FINDINGS: Minimal anterior wedging within the L2 vertebral body, unchanged. No acute fracture or subluxation within the lumbar spine. No subluxation. Disc spaces are preserved. IMPRESSION: No acute fracture or subluxation within the lumbar spine. Electronically signed by: Sony Leigh M.D. 08/20/2017 5:11 PM The patient was informed of the findings. The patient was reevaluated and was feeling better. The patient was discharged home with his driving. DIAGNOSIS: Lumbar strain DISCHARGE INSTRUCTIONS AND TREATMENT: Take Medrol Dosepak as prescribed. Ibuprofen 600 mg every 6 hours with food for pain. Take OxyIR as needed for more severe pain. Do not drive while taking OxyIR. Take Flexeril daily as prescribed. Do not drive while taking the Flexeril. Avoid any heavy lifting until symptoms are improving. If symptoms are not improving in 4-5 days, follow -up with your family doctor for reevaluation. Problem List Medical Problems: (1) Back strain Status: Resolved (2) Closed head injury Status: Resolved (3) Dizziness Status: Resolved (4) Finger laceration involving tendon Status: Resolved (5) Gastritis Status: Resolved (6) Headache Status: Resolved (7) Influenza Status: Resolved (8) Influenza A Status: Resolved (9) Laceration of hand, right, complicated Status: Resolved (10) Pain due to dental caries Status: Resolved (11) Pain due to dental caries Status: Resolved (12) Pneumonia Status: Resolved (13) Rib contusion Status: Resolved (14) Right corneal abrasion Status: Resolved (15) Scalp laceration Status: Resolved (16) Sinusitis Status: Resolved (17) Weak Status: Resolved (18) Weakness Status: Resolved Social History Problems: (1) Smoker Status: Chronic Current/Historical Medications Scheduled Buspirone HCl (Buspirone HCl), 20 MG PO BID Divalproex Sodium (Depakote Extended-Release), 250 MG PO QAM Divalproex Sodium (Depakote Er), 500 MG PO HS Escitalopram Oxalate (Escitalopram Oxalate), 10 MG PO QAM Pantoprazole (Protonix), 40 MG PO DAILY Quetiapine Fumarate (Quetiapine Fumarate), 600 MG PO HS Scheduled PRN Ibuprofen Tab (Advil), 800 MG PO Q8 PRN for Pain or Fever Allergies Coded Allergies: No Known Allergies (Verified , 08/20/17) Vital Signs Date Time Temp Pulse Resp B/P (MAP) Pulse Ox O2 Delivery O2 Flow Rate FiO2 08/20/17 16:30 36.3 82 20 122/77 98 Room Air Medications Administered Medications (Trade) Dose Ordered Sig/J Carlos Route Start Time Stop Time Status Last Admin Dose Admin Ketorolac Tromethamine (Toradol Inj) 60 mg NOW STAT IM 08/20/17 16:43 08/20/17 16:46 DC 08/20/17 17:16 60 MG Cyclobenzaprine HCl (Flexeril Tab) 10 mg NOW STAT PO 08/20/17 16:43 08/20/17 16:46 DC 08/20/17 17:16 10 MG Oxycodone HCl (Roxicodone Immediate Rel Tab) 10 mg NOW STAT PO 08/20/17 16:43 08/20/17 16:46 DC 08/20/17 17:16 10 MG Dexamethasone Sodium Phosphate (Dexamethasone Inj Pf) 10 mg STK-MED ONCE .ROUTE 08/20/17 16:53 08/20/17 16:54 DC 08/20/17 17:16 10 MG Departure Information Referrals No Doctor, Assigned (PCP) Patient Instructions [facility]
[2017-08-20] MEDS ORDERED: OXYC1TAB3 PO (17:50)
[2017-08-20] MEDS ORDERED: METH4PAK PO (17:50)
[2017-08-20] MEDS ORDERED: CYCL10TA6 PO (17:50)
[2017-08-20 18:02] VITALS: BP 122/77; PULSE 82; TEMP 36.3; O2SAT 98
== END 2017-08-20 18:03 | disposition home or self-care (01) ==
LOC: C.EDB 16:13 → C.EDD 18:03
DX: S39.012A Strain of muscle, fascia and tendon of lower back, initial encounter (principal); X50.0XXA Overexertion from strenuous movement or load, initial encounter; Y92.89 Other specified places as the place of occurrence of the external cause; F17.210 Nicotine dependence, cigarettes, uncomplicated